=== PATIENT | male | born 1955 | race Caucasian/White ===

== ENCOUNTER → 2016-10-15 | Outpatient (CLI) | payer SELFPAY ==
[~2016-10-15] MED LIST: ADVIL200 M2 PO; ASPIRIN325 MG PO; BACTRIM DS1 TAB; LIPITOR20 M1 PO; MULTI VITAMIN1 EACH PO; NEURONTIN300 MG PO; NORCO 5-325 MG1 TAB PO; PRINIVIL5 MG PO; TOPROL XL50 MG PO; TYLENOL EXTRA500 MG PO; VITAMIN C500 M1 PO; WELLBUTRIN SR150 MG PO
== END | disposition disaster alternative care site (69) ==
LOC: GRAD 10:33
DX: L97.529 Non-pressure chronic ulcer of other part of left foot with unspecified severity (principal); K80.20 Calculus of gallbladder without cholecystitis without obstruction; N28.89 Other specified disorders of kidney and ureter; I70.1 Atherosclerosis of renal artery; I72.4 Aneurysm of artery of lower extremity; I77.1 Stricture of artery; I70.8 Atherosclerosis of other arteries; Z89.611 Acquired absence of right leg above knee
CPT/HCPCS: Q9967